=== PATIENT | male | born 1995 | race Two or more races ===

== ENCOUNTER 2017-05-13 14:43 | Emergency (ER) | payer OTHER ==
[2017-05-13 14:51] VITALS: BP 121/61; PULSE 73; RESP 16; TEMP 98.2; O2SAT 97
--- NOTE | 2017-05-13 15:17 | EDPHY ---
H & P Stated Complaint: Fell snowboarding Tues;+helmet,no LOC;UC sent for eval ? carotid dissection Time Seen by Provider: 05/13/17 15:08 HPI/ROS: CHIEF COMPLAINT: Concussion HISTORY OF PRESENT ILLNESS: Patient is a 22-year-old man who comes to the emergency department 3 days after suffering a concussion while snowboarding. He states that on Monday he went off of a 3 ft jump and hit a rock and fell backwards and hit his back and the back of his head on the snow at the same time. He has had a mild headache since that time. No blurry vision. No nausea vomiting. No loss of consciousness. No seizures. He also has a history of severe traumatic brain injury 4 years ago for which she was hospitalized but did not require any surgeries. He was also found to have benign cyst at the time. Today he presented to the urgent care with his girlfriend complaining of persistent concussion symptoms and they recommended he come here to be ruled out for carotid dissection because his pupils appeared to be 1 mm different.. REVIEW OF SYSTEMS: Constitutional: denies: chills, fever, recent illness, recent injury EENTM: denies: blurred vision, double vision, nose congestion Respiratory: denies: cough, shortness of breath Cardiac: denies: chest pain, irregular heart rate, lightheadedness, palpitations Gastrointestinal/Abdominal: denies: abdominal pain, diarrhea, nausea, vomiting, blood streaked stools Genitourinary: denies: dysuria, frequency, hematuria, pain Musculoskeletal: denies: joint pain, muscle pain Skin: denies: lesions, rash, jaundice, bruising Neurological: See HPI denies: numbness, paresthesia, tingling, dizziness, weakness Hematologic/Lymphatic: denies: blood clots, easy bleeding, easy bruising Immunologic/allergic: denies: HIV/AIDS, transplant EXAM: GENERAL: Well-appearing, well-nourished and in no acute distress. HEAD: Atraumatic, normocephalic. EYES: Pupils equal round and reactive to light, extraocular movements intact, sclera anicteric, conjunctiva are normal. No nystagmus ENT: TMs normal, nares patent, oropharynx clear without exudates. Moist mucous membranes. NECK: Normal range of motion, supple without lymphadenopathy or JVD. LUNGS: Breath sounds clear to auscultation bilaterally and equal. No wheezes rales or rhonchi. HEART: Regular rate and rhythm without murmurs, rubs or gallops. ABDOMEN: Soft, nontender, normoactive bowel sounds. No guarding, no rebound. No masses appreciated. BACK: No CVA tenderness, no spinal tenderness, step-offs or deformities EXTREMITIES: Normal range of motion, no pitting or edema. No clubbing or cyanosis. NEUROLOGICAL: Cranial nerves II through XII grossly intact. Normal speech, normal gait. 5/5 strength, normal movement in all extremities, normal sensation , normal Romberg, normal balance on 1 ft. PSYCH: Normal mood, normal affect. SKIN: Warm, dry, normal turgor, no visible rashes or lesions. Source: Patient Exam Limitations: No limitations - Personal History Current Tetanus Diphtheria and Acellular Pertussis (TDAP): Yes - Medical/Surgical History Hx Asthma: No Hx Chronic Respiratory Disease: No Hx Diabetes: No Hx Cardiac Disease: No Hx Renal Disease: No Hx Cirrhosis: No Other PMH: TBI at age 18 - Family History Significant Family History: No pertinent family hx - Social History Smoking Status: Never smoked Alcohol Use: Sober Drug Use: None Constitutional: Initial Vital Signs Temperature (C) 36.8 C 05/13/17 14:46 Heart Rate 73 05/13/17 14:46 Respiratory Rate 16 05/13/17 14:46 Blood Pressure 121/61 H 05/13/17 14:46 O2 Sat (%) 97 05/13/17 14:46 O2 Delivery Mode Room Air Allergies/Adverse Reactions: No Known Allergies Allergy (Unverified 05/13/17 14:46) Home Medications: Medication Instructions Recorded NK [No Known Home Meds] 05/13/17 Medical Decision Making ED Course/Re-evaluation: The patient has a normal clinical exam. I especially do not notice any difference in his pupil size or reflexiveness. Neither does nursing staff. The patient appears to have a mild concussion with persistent symptoms although gradually improving. We discussed options. The patient declines imaging. He understands we cannot rule out dissection or intracranial injury without imaging. 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 I encouraged him to sleep as much as possible and we discussed stepwise return to activity. 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 We discussed indications for returning. Differential Diagnosis: Partial list of the Differential diagnosis considered include but were not limited to; headache, concussion, postconcussive syndrome and although unlikely based on the history and physical exam, I also considered intracranial injury, dissection, tumor, migraine. I discussed these differential diagnoses and the plan with the patient as well as the usual and expected course. The patient understands that the diagnosis is provisional and that in medicine we are not always correct and that further workup is often warranted. Usual and customary warnings were given. All of the patient's questions were answered. The patient was instructed to return to the emergency department should the symptoms at all worsen or return, otherwise to followup with the physician as we discussed. Departure - Departure Disposition: Home, Routine, Self-Care Clinical Impression: Concussion Qualifiers: Encounter type: initial encounter Loss of consciousness presence/duration: without LOC Qualified Code(s): S06.0X0A - Concussion without loss of consciousness, initial encounter Condition: Fair Instructions: Concussion (ED) Referrals: Korin Newman MD [Medical Doctor] - As per Instructions Stand Alone Forms: Work Excuse
== END 2017-05-13 15:30 | disposition home or self-care (01) ==
DX: S06.0X0A Concussion without loss of consciousness, initial encounter (principal); V00.311A Fall from snowboard, initial encounter; Y99.8 Other external cause status; Y93.23 Activity, snow (alpine) (downhill) skiing, snowboarding, sledding, tobogganing and snow tubing

== ENCOUNTER 2017-09-29 04:37 | Emergency (ER) | payer OTHER ==
[2017-09-29] MEDS ORDERED: NS 1,000 ML IV ONE (05:11)
[2017-09-29] MEDS ORDERED: KETOROLAC 15 MG/1 ML SDV IVP ONE (05:11)
[2017-09-29] MEDS ORDERED: FAMOTIDINE 20 MG/NACL 50 ML IV ONE (05:11)
--- NOTE | 2017-09-29 05:19 | CPEKG ---
Heart Rate: 94 RR Interval: 638 P-R Interval: 160 QRSD Interval: 88 QT Interval: 340 QTC Interval: 426 P [place]: 50 QRS [place]: 65 T Wave [place]: 35 EKG Severity - NORMAL ECG - EKG Impression: SINUS RHYTHM Electronically Signed By: Kimberly Andrews 30-Sep-2017 04:56:57
[2017-09-29 05:53] LABS: PLATELET COUNT 227 10^3/uL (150-400)
--- NOTE | 2017-09-29 06:39 | EDPHY ---
H & P Stated Complaint: Stabbing epigastric pain, N/V x 1 day Time Seen by Provider: 09/29/17 04:55 HPI/ROS: HPI The patient presents with epigastric abdominal pain which has been present for the last several hours. For the last 1 day the patient has been feeling generally ill with body aches and 2 episodes of vomiting. He developed epigastric pain which was sharp, did not radiate, and was moderate in severity a few hours prior to presentation. His symptoms have been constant since. He tried acetaminophen and Pepto-Bismol, however he did not get any relief so he comes to the emergency department. He denies any fever, shortness of breath, cough, diarrhea, abdominal discomfort in any other region.. REVIEW OF SYSTEMS Constitutional: No fever, no chills. Eyes: No discharge. ENT: No sore throat. Cardiovascular: No chest pain, no palpitations. Respiratory: No cough, no shortness of breath. Gastrointestinal: See HPI Genitourinary: No hematuria. Musculoskeletal: No back pain. Skin: No rashes. Neurological: No headache. PMHx: Healthy Soc Hx: Nonsmoker PHYSICAL General Appearance: Alert, no distress Eyes: Pupils equal and round no pallor or injection ENT, Mouth: Mucous membranes moist Respiratory: There are no retractions, lungs are clear to auscultation Cardiovascular: Regular rate and rhythm Gastrointestinal: Abdomen is soft and with mild tenderness in the epigastrium, no masses, bowel sounds normal Neurological: A&O, moves all extremities Skin: Warm and dry, no rashes Musculoskeletal: Neck is supple non tender Extremities: symmetrical, full range of motion Psychiatric: Patient is oriented X 3, there is no agitation Source: Patient Exam Limitations: No limitations - Personal History Current Tetanus/Diphtheria Vaccine: Yes Current Tetanus Diphtheria and Acellular Pertussis (TDAP): Yes - Medical/Surgical History Hx Asthma: No Hx Chronic Respiratory Disease: No Hx Diabetes: No Hx Cardiac Disease: No Hx Renal Disease: No Hx Cirrhosis: No Hx Alcoholism: No Hx HIV/AIDS: No Hx Splenectomy or Spleen Trauma: No Other PMH: TBI at age 18, concussion - Social History Smoking Status: Never smoked Constitutional: Initial Vital Signs Temperature (C) 36.3 C 09/29/17 04:38 Heart Rate 97 09/29/17 04:38 Respiratory Rate 17 09/29/17 04:38 Blood Pressure 91/57 L 09/29/17 04:38 O2 Sat (%) 95 09/29/17 04:38 O2 Delivery Mode Room Air Allergies/Adverse Reactions: No Known Allergies Allergy (Unverified 05/13/17 14:46) Home Medications: Medication Instructions Recorded Famotidine [Pepcid 20 MG (*)] 20 mg PO BID #30 tab 09/29/17 Medical Decision Making - Diagnostics EKG Interpretation: EKG: Complete interpretation has been separately recorded in the [facility] archive. Summary impression: Normal sinus rhythm Imaging Results: Chest x-ray two view shows no cardiomegaly, no pneumothorax, no infiltrate, possible reactive airways disease, interpreted by me, radiology interpretation is pending. Differential Diagnosis: This is a 22-year-old healthy male who presents with several hours of epigastric abdominal pain in the setting of generalized malaise and vomiting over the last 1 day. On exam, vital signs are normal, he does have epigastric tenderness on exam. Differential diagnosis includes gastritis, gastroenteritis, biliary colic, pancreatitis, pneumonia, pneumothorax, pericarditis. In the emergency department, patient was given 1 L of IV fluids and medication for pain. He had complete resolution of his symptoms and felt to sleep. Labs were checked and were unremarkable. EKG and chest x-ray are normal. I suspect he is likely suffering from gastritis or gastroenteritis and I have discussed this with him. He is suitable for discharge at this time, able to take fluids by mouth and will be discharged home. - Data Points Laboratory Results: Laboratory Results 09/29/17 05:30 09/29/17 05:30 09/29/17 09/29/17 05:30 05:30 WBC 8.66 10^3/uL 10^3/uL (3.80-9.50) RBC 5.29 10^6/uL 10^6/uL (4.40-6.38) Hgb 16.2 g/dL g/dL (13.7-17.5) Hct 46.2 % % (40.0-51.0) MCV 87.3 fL fL (81.5-99.8) MCH 30.6 pg pg (27.9-34.1) MCHC 35.1 g/dL g/dL (32.4-36.7) RDW 12.5 % % (11.5-15.2) Plt Count 227 10^3/uL 10^3/uL (150-400) MPV 9.8 fL fL (8.7-11.7) Neut % (Auto) 80.8 % H % (39.3-74.2) Lymph % (Auto) 12.2 % L % (15.0-45.0) [place] % (Auto) 6.4 % % (4.5-13.0) Eos % (Auto) 0.1 % L % (0.6-7.6) Baso % (Auto) 0.2 % L % (0.3-1.7) Nucleat RBC Rel Count 0.0 % % (0.0-0.2) Absolute Neuts (auto) 6.99 10^3/uL H 10^3/uL (1.70-6.50) Absolute Lymphs (auto) 1.06 10^3/uL 10^3/uL (1.00-3.00) Absolute Monos (auto) 0.55 10^3/uL 10^3/uL (0.30-0.80) Absolute Eos (auto) 0.01 10^3/uL L 10^3/uL (0.03-0.40) Absolute Basos (auto) 0.02 10^3/uL 10^3/uL (0.02-0.10) Absolute Nucleated RBC 0.00 10^3/uL 10^3/uL (0-0.01) Immature Gran % 0.3 % % (0.0-1.1) Immature Gran # 0.03 10^3/uL 10^3/uL (0.00-0.10) Sodium 140 mEq/L mEq/L (135-145) Potassium 3.8 mEq/L mEq/L (3.3-5.0) Chloride 103 mEq/L mEq/L (97-110) Carbon Dioxide 22 mEq/l mEq/l (22-31) Anion Gap 15 mEq/L mEq/L (8-16) BUN 15 mg/dL mg/dL (7-23) Creatinine 0.9 mg/dL mg/dL (0.7-1.3) Estimated GFR > 60 Glucose 111 mg/dL H mg/dL (70-100) Calcium 9.1 mg/dL mg/dL (8.5-10.4) Total Bilirubin 1.3 mg/dL mg/dL (0.1-1.4) Conjugated Bilirubin 0.2 mg/dL mg/dL (0.0-0.5) Unconjugated Bilirubin 1.1 mg/dL mg/dL (0.0-1.1) AST 24 IU/L IU/L (17-59) ALT 43 IU/L IU/L (21-72) Alkaline Phosphatase 22 IU/L L IU/L (38-126) Total Protein 7.2 g/dL g/dL (6.3-8.2) Albumin 4.5 g/dL g/dL (3.5-5.0) Lipase 126 IU/L IU/L (23-300) Medications Given: Discontinued Medications Sodium Chloride (Ns) 1,000 mls @ 0 mls/hr IV EDNOW ONE; Wide Open PRN Reason: Protocol Stop: 09/29/17 05:12 Last Admin: 09/29/17 05:22 Dose: 1,000 mls Famotidine/Sodium Chloride (Pepcid 20 Mg (Premix)) 50 mls @ 200 mls/hr IV EDNOW ONE Stop: 09/29/17 05:25 Last Admin: 09/29/17 05:23 Dose: 50 mls Ketorolac Tromethamine (Toradol) 15 mg IVP EDNOW ONE Stop: 09/29/17 05:12 Last Admin: 09/29/17 05:23 Dose: 15 mg Departure - Departure Disposition: Home, Routine, Self-Care Clinical Impression: Epigastric abdominal pain Condition: Good Instructions: Gastritis (ED), Diet for Stomach Ulcers and Gastritis (ED) Additional Instructions: I recommend that you maintain a bland diet and drink plenty of fluids until your feeling better. You should return to the emergency department if your worse in any way. Referrals: Obed Pitt [Doctor of Osteopathy] - As per Instructions Prescriptions: Famotidine [Pepcid 20 MG (*)] 20 mg PO BID #30 tab
[2017-09-29] MEDS ORDERED: ONDANSETRON 4MG PREPACK#2 BTL TAKEHOME ONE (06:56)
[2017-09-29 07:07] VITALS: BP 103/68
== END 2017-09-29 07:07 | disposition home or self-care (01) ==
DX: R10.13 Epigastric pain (principal); E86.9 Volume depletion, unspecified
CPT/HCPCS: 96374; J1885